=== PATIENT | female | born 1975 | race Caucasian/White ===

== ENCOUNTER 2020-12-09 16:05 | Emergency (ER) | payer OTHER ==
[~2020-12-09 16:05] MED LIST: FLAGYL500 MG PO; ZOFRAN4 MG PO
== END 2020-12-09 17:35 | disposition home or self-care (01) ==
LOC: ER1 16:05
DX: K64.5 Perianal venous thrombosis (principal); F17.210 Nicotine dependence, cigarettes, uncomplicated
CPT/HCPCS: 46320; 99283

== ENCOUNTER 2021-03-07 05:27 | Day surgery (SDC) | payer OTHER ==
[~2021-03-07] VITALS: Ht 172.7 cm; Wt 59.0 kg
[2021-03-07] MEDS ORDERED: COLACE 100MG C100 MG PO (08:34)
[2021-03-07] MEDS ORDERED: ENDOCET 10-3251 EACH PO (08:34)
[2021-03-08] MEDS ORDERED: ESTRACE 1 MG TAB1 MG PO (07:48)
== END 2021-03-08 10:40 | disposition home or self-care (01) ==
LOC: OR 05:27 → MED SURG 4 13:03 → OR 03-08 10:40
PROVIDERS: Obstetrics & Gynecology
DX: N80.0 Endometriosis of uterus (principal); N72 Inflammatory disease of cervix uteri; N87.9 Dysplasia of cervix uteri, unspecified; D25.1 Intramural leiomyoma of uterus; D25.2 Subserosal leiomyoma of uterus; N80.9 Endometriosis, unspecified; N92.6 Irregular menstruation, unspecified; N93.0 Postcoital and contact bleeding; K59.09 Other constipation; N30.10 Interstitial cystitis (chronic) without hematuria; F17.210 Nicotine dependence, cigarettes, uncomplicated; Z88.6 Allergy status to analgesic agent; Z88.8 Allergy status to other drugs, medicaments and biological substances
CPT/HCPCS: 36415; 84702; 85014; 85018; 93005; J0690; J1100; J1170; J2001; J2250; J2270; J2405; J2704; J2710; J2795; J3010; J7120

== ENCOUNTER 2021-07-25 18:43 | Emergency (ER) | payer OTHER ==
[~2021-07-25 18:43] MED LIST changes: +CIPRO500 MG PO; +COLACE 100MG C100 MG PO; +ENDOCET 10-3251 EACH PO; +ESTRACE 1 MG TAB1 MG PO; +FLAGYL 250 MG250 MG PO
[2021-07-25 21:13] LABS: HEMOGLOBIN 15.1 gm/dl (12.3-15.3); RED BLOOD COUNT 4.61 M/UL (4.00-5.10); WHITE BLOOD COUNT 9.9 K/UL (4.5-11.0)
[2021-07-25 21:32] LABS: BUN/CREATININE RATIO 14 (0-10)
[2021-07-25] MEDS ORDERED: MEDROL4 MG PO (22:59)
[2021-07-25] MEDS ORDERED: CYCLOBENZAPRINE10 MG PO (22:59)
[2021-07-25] MEDS ORDERED: OXYCODON-ACETA1 EAC1 PO (22:59)
== END 2021-07-25 23:19 | disposition home or self-care (01) ==
LOC: ER1 18:43
PROVIDERS: Preventive Medicine Occupational Medicine
DX: M54.16 Radiculopathy, lumbar region (principal); X50.1XXA Overexertion from prolonged static or awkward postures, initial encounter
CPT/HCPCS: 72131; 80053; 81001; 84703; 85025; 86140; 96374; 96375; 99284; J1170; J2930; J3360